=== PATIENT | female | born 1950 | race Caucasian/White ===

== ENCOUNTER 2021-06-19 13:14 | Outpatient (CLI) | payer MEDICARE, BC | END 2021-06-19 23:59 | disposition home or self-care (01) | LOC: CFH 13:14 | PROVIDERS: ATTEND Registered Nurse | DX: Z12.2 Encounter for screening for malignant neoplasm of respiratory organs (principal); Z87.891 Personal history of nicotine dependence | CPT/HCPCS: 71271 ==